=== PATIENT | male | born 1995 | race Caucasian/White ===

== ENCOUNTER 2017-07-09 11:01 | Emergency (ER) | payer BC ==
[2017-07-09 12:55] VITALS: BP 106/58
--- NOTE | 2017-07-09 13:32 | UC ---
Skin Complaint HPI - HPI Summary HPI Summary: Patient presents with rash on legs and arms, he was treated for poison yun and has some cream he has been putting the the rash with some improvement. However his right leg has become more red, painful, and swollen. He now comes into the clinic for evaluation of the right leg. He denies fever, chills, nausea or vomiting. - History of Current Complaint Chief Complaint: [facility] Time Seen by Provider: 07/09/17 13:05 Stated Complaint: RASH Hx Obtained From: Patient Onset/Duration: Gradual Onset, Lasting Days Skin Exposure Onset/Duration: Days Ago Onset Severity: Moderate Current Severity: Moderate Location: Diffuse, Other - lower legs, and forearms. Character: Swelling, Pruritus, Redness Aggravating: Showering, Touch Alleviating: OTC Creams/Salves Associated Signs & Symptoms: Positive: Rash Related History: Possible Reaction to: Environmental Exposure, Other: - posion yun - Allergy/Home Medications Allergies/Adverse Reactions: Allergies Allergy/AdvReac Type Severity Reaction Status Date / Time No Known Allergies Allergy Verified 07/09/17 11:32 Home Medications: Home Medications Clobetasol 0.05% OINT* 07/09/17 [History] Review of Systems Skin: Rash All Other Systems Reviewed And Are Negative: Yes PMH/Surg Hx/FS Hx/Imm Hx Previously Healthy: Yes - Surgical History Surgical History: None - Family History Known Family History: Positive: None - Social History Occupation: Student Lives: Alone Alcohol Use: None Substance Use Type: None Smoking Status (MU): Never Smoked Tobacco Physical Exam Triage Information Reviewed: Yes Appearance: Well-Appearing Vital Signs: Initial Vital Signs Temp 98.7 F 07/09/17 11:32 Pulse 72 07/09/17 11:32 Resp 16 07/09/17 11:32 BP 113/68 07/09/17 11:32 Pulse Ox 100 07/09/17 11:32 Vital Signs Reviewed: Yes Eye Exam: Normal ENT Exam: Normal Neck exam: Normal Respiratory Exam: Normal Cardiovascular Exam: Normal Musculoskeletal Exam: Normal Skin Exam: Other - vesicular erythemic rash on lower legs, forearms, and left side of ribs. Course/Dx - Course Course Of Treatment: Patient presents s/p exposure to posion yun and has been putting steoid cram on the rash with improvment. He has now developed redness of the right lower leg consistent with cellulitis. He is going to be RX steroid ointment for the posion yun, and short course of prednisone, as well as keflex for the cellulitis. I recommend that he be rechecked in two days. He is discharged home in stable condiiton, with normal vs. - Differential Diagnoses - Skin Complaint Differential Diagnoses: Cellulitis, Poison Yun - Diagnoses Provider Diagnoses: posion yun. cellulitis Discharge - Discharge Plan Condition: Stable Disposition: HOME Prescriptions: Cephalexin CAP* [Keflex CAP*] 500 mg PO QID #40 cap Fluticasone Propionate 0.005 % EX QID #1 oin predniSONE TAB* [Deltasone TAB*] 20 mg PO BID #10 tab Patient Education Materials: Cellulitis (ED), Poison Yun (ED) Referrals: Kevin Rudd MD [Primary Care Provider] - Additional Instructions: I recommend you be rechecked in two days.
== END 2017-07-09 13:20 | disposition home or self-care (01) ==
LOC: UCEAST 11:01
DX: L23.7 Allergic contact dermatitis due to plants, except food (principal); L03.115 Cellulitis of right lower limb
CPT/HCPCS: 99202; G0463